=== PATIENT | male | born 1990 | race Two or more races ===

== ENCOUNTER 2017-05-30 18:37 | Emergency (ER) | payer SELFPAY ==
[~2017-05-30] VITALS: Ht 167.6 cm; Wt 74.8 kg
[~2017-05-30 18:37] MED LIST: CYCLOBENZAPRINE10 MG ORAL; IBUPROFEN800 MG ORAL
[2017-05-30] MEDS ORDERED: NKM (19:06)
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
[2017-05-30] MEDS ORDERED: IBUPROFEN600 MG ORAL (19:24)
[2017-05-30] MEDS ORDERED: CYCLOBENZAPRINE10 MG ORAL (19:24)
[2017-05-30 19:45] VITALS: BP 136/89
== END 2017-05-30 19:50 | disposition home or self-care (01) ==
LOC: EMR 19:23
DX: M62.838 Other muscle spasm (principal)
CPT/HCPCS: 99284

== ENCOUNTER 2017-08-02 02:58 | Emergency (ER) | payer BC ==
[~2017-08-02] VITALS: Ht 167.6 cm; Wt 70.3 kg
[~2017-08-02 02:58] MED LIST changes: +IBUPROFEN600 MG ORAL; +NKM
[2017-08-02] MEDS ORDERED: AUGMENTIN 875-1 EAC1 ORAL (03:29)
[2017-08-02] MEDS ORDERED: Tetanus/Diptheria/Pertussis Vaccine 0.5ml Syr IM ONE (03:30)
[2017-08-02 03:41] VITALS: BP 134/75
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
== END 2017-08-02 03:42 | disposition home or self-care (01) ==
LOC: EMR 03:11
DX: S61.052A Open bite of left thumb without damage to nail, initial encounter (principal); Y04.1XXA Assault by human bite, initial encounter; Y92.89 Other specified places as the place of occurrence of the external cause; Z23 Encounter for immunization
CPT/HCPCS: 90471; 90715; 99283